=== PATIENT | male | born 1995 | race African-American/Black ===

== ENCOUNTER 2019-02-08 07:35 | Emergency (ER) | payer OTHER, SELFPAY ==
[2019-02-08 07:48] VITALS: BP 127/68; PULSE 67; RESP 16; TEMP 36.8; O2SAT 98; BMI 31.1
--- NOTE | 2019-02-08 07:55 | DI.RAD.S_ITS ---
PROCEDURE: XR MANDIBLE MIN 4V INDICATIONS: Right mandible pain right ramus after injury TECHNIQUE: 4 views of the mandible were acquired. COMPARISON: None. FINDINGS: Bones: No fractures or dislocations. No suspicious bony lesions. Soft tissues: Visualized sinuses appear clear. No suspicious soft tissue densities. IMPRESSION: No acute fracture. No osseous lesion. If symptoms and/or clinical suspicion for pathology persist, further assessment with repeat, or advanced imaging (e.g., CT, MRI, or bone scan) may be helpful for further assessment. Dictated by: Billie Stubbs M.D. on 02/08/2019 at 8:32 Approved by: Billie Stubbs M.D. on 02/08/2019 at 8:32
--- NOTE | 2019-02-08 09:29 | DI.CT.S_ITS ---
PROCEDURE: CT FACIAL BONES WO CON INDICATIONS: Right side jaw pain after basketball injury TECHNIQUE: Noncontrast 2.5 mm thick axial images acquired from the mandible through the frontal sinuses, with coronal and sagittal reformatting. For radiation dose reduction, the following was used: automated exposure control, adjustment of mA and/or kV according to patient size. COMPARISON: None. FINDINGS: Image quality: Excellent. Bones and teeth: Orbital mason are intact. Sinus mason show no fracture or deformity. Nasal bones and septum are intact. Visualized portions of the mandible demonstrate no fractures or subluxation. Zygomatic arches are intact. Pterygoid plates are intact. Visualized portions of the skull base and auditory canals are intact. Vertically impacted right upper and lower third molars and left upper third molar noted. Sinuses: History attention cysts noted in the left frontal sinus and the left maxillary sinus. Mastoid air cells are aerated. Soft tissues: No edema, masses, or fluid collections. No enlarged lymph nodes. No soft tissue lacerations or debris. Vascular: Visualized vascular structures appear normal in the absence of contrast. Bony vascular foramina and canals are intact. IMPRESSION: No fracture. Dictated by: Elidia Mary MD, PhD on 02/08/2019 at 8:56 Approved by: Elidia Mary MD, PhD on 02/08/2019 at 8:59
[2019-02-08 09:58] VITALS: BP 117/72; PULSE 63; RESP 16; O2SAT 100
--- NOTE | 2019-02-08 09:58 | PC.NURSE ---
Patient alert and oriented x4. To radiology. Awaiting CT results.
--- NOTE | 2019-02-08 09:58 | ED.HEATRA ---
HPI - Head Injury General Chief complaint: Head Injury Stated complaint: right jaw injury x1 day Time Seen by Provider: 02/08/19 07:37 Mode of arrival: Ambulatory Limitations: no limitations History of Present Illness HPI Narrative: 23-year-old male nonsmoker, otherwise healthy presents to the emergency department with a chief complaint of right-sided jaw pain since last night. He was playing basketball when another player air accidentally rammed his shoulder into his jaw. He now has pain in the right side of his drop just anterior to the ear. It is worse with motion and chewing and improves with rest. He denies any popping or clicking. He denies any numbness, tingling or weakness. MD Complaint: head injury Onset (ago): hour(s) Mechanism of Injury: unsure Place: outdoors Loss of Consciousness: no Location of injury: mandible Radiation: none Other Injuries: none Related Data Previous Rx's Medication Instructions Recorded ketorolac 10 mg PO TID 5 Days #15 tab 02/08/19 Review of Systems Constitutional Constitutional: Denies chills, Denies fatigue, Denies fever(s), Denies frequent falls, Denies lethargy and Denies weakness Eyes Eyes: Denies change in vision, Denies eye discharge, Denies irritation and Denies loss of vision ENT Ears, Nose, Mouth, and Throat: Denies change in voice, Denies dizziness, Denies neck pain, Denies sore throat and Denies throat swelling Cardiovascular Cardiovascular: Denies chest pain, Denies irregular heart rhythm, Denies lightheadedness, Denies palpitations, Denies dyspnea, Denies dyspnea on exertion and Denies orthopnea Respiratory Respiratory: Denies cough, Denies dyspnea, Denies dyspnea on exertion and Denies wheezing Gastrointestinal Gastrointestinal: Denies abdominal pain, Denies change in bowel habits, Denies diarrhea, Denies nausea and Denies vomiting Genitourinary Genitourinary: Denies hematuria, Denies flank pain, Denies urinary incontinence and Denies urinary urgency Musculoskeletal Musculoskeletal: Denies back pain, Denies muscle weakness, Denies neck pain, Denies numbness and Denies tingling Integumentary/Breasts Skin/Breast: Denies pruritus, Denies erythema, Denies rash and Denies wounds Neurologic Neurologic: Denies behavioral changes, Denies confusion, Denies dizziness, Denies frequent falls, Denies loss of vision, Denies numbness, Denies tingling and Denies weakness Psychiatric Psychiatric: Denies anxiety, Denies behavioral changes, Denies confusion, Denies depression, Denies homicidal ideation and Denies suicidal ideation Endocrine Endocrine: Denies fatigue, Denies flushing and Denies palpitations Hematologic/Lymphatic Hematologic/Lymphatic: Denies easy bruising Allergic/Immunologic Allergic/Immunologic: Denies urticaria, Denies throat swelling and Denies wheezing PFSH Social History Smoking Status: Never smoker Social History Smoking Status: Never smoker Exam Narrative Exam Narrative: GEN: AOx3 and in mild distress EYES: Pupils are equal, round, and reactive to light and accommodation. Extraoccular muscles are intact bilaterally. There is no subconjunctival hemorrhage or exudate. ENT: pain to palpate TMJ on Right. No numbness. NO dental injury. CHEST: Lungs are clear to auscultation bilaterally and free of wheezes, rales, or rhonchi. Heart rate is regular rhythm, there are no murmurs, clicks, rubs, or gallops. There is no chest wall tenderness. ABD: Abdomen is soft and nontender. There is no guarding or rebound. Bowel sounds are normal in all 4 quadrants. There is no mass or organomegaly. EXT: Full painless ROM of all extremities with no loss of sensation or strength. SKIN: Warm, pink, and dry. No erythema or rash Initial Vital Signs Initial Vital Signs: Vital Signs Temperature 98.3 F 02/08/19 07:48 Pulse Rate 67 02/08/19 07:48 Respiratory Rate 16 02/08/19 07:48 Blood Pressure 127/68 02/08/19 07:48 Pulse Oximetry 98 02/08/19 07:48 Course Orders Ordered: ED Orders 02/08/19 09:29 CT facial bones wo con Stat Vital Signs Vital signs: Vital Signs - 8 hr 02/08/19 09:58 Pulse Rate 63 Respiratory Rate 16 Blood Pressure [Left Arm] 117/72 Pulse Oximetry 100 MDM - Head Injury Imaging Data Mandible Xray: Radiologist's impression: [address] [address] XRay Report Signed Patient: Garrick Chaudhary [facility]#: [id number] : 1995Acct:[id number] Age/Sex: 23 / MDate of Service: 02/08/19 Loc: ED Accession Number: [id number] Procedure: XR mandible min 4V Ordering Provider: David Talamantes D.O. PROCEDURE: XR MANDIBLE MIN 4V INDICATIONS: Right mandible pain right ramus after injury TECHNIQUE: 4 views of the mandible were acquired. COMPARISON: None. FINDINGS: Bones: No fractures or dislocations. No suspicious bony lesions. Soft tissues: Visualized sinuses appear clear. No suspicious soft tissue densities. IMPRESSION: No acute fracture. No osseous lesion. If symptoms and/or clinical suspicion for pathology persist, further assessment with repeat, or advanced imaging (e.g., CT, MRI, or bone scan) may be helpful for further assessment. Dictated by: Billie Stubbs M.D. on 02/08/2019 at 8:32 Approved by: Billie Stubbs M.D. on 02/08/2019 at 8:32 [place] [address] CT Scan Report Signed Patient: Grarick Chaudhary [facility]#: [id number] : 1995Acct:[id number] Age/Sex: 23 / MDate of Service: 02/08/19 Loc: ED Accession Number: [id number] Procedure: CT facial bones wo con Ordering Provider: David Talamantes D.O. PROCEDURE: CT FACIAL BONES WO CON INDICATIONS: Right side jaw pain after basketball injury TECHNIQUE: Noncontrast 2.5 mm thick axial images acquired from the mandible through the frontal sinuses, with coronal and sagittal reformatting. For radiation dose reduction, the following was used: automated exposure control, adjustment of mA and/or kV according to patient size. COMPARISON: None. FINDINGS: Image quality: Excellent. Bones and teeth: Orbital mason are intact. Sinus mason show no fracture or deformity. Nasal bones and septum are intact. Visualized portions of the mandible demonstrate no fractures or subluxation. Zygomatic arches are intact. Pterygoid plates are intact. Visualized portions of the skull base and auditory canals are intact. Vertically impacted right upper and lower third molars and left upper third molar noted. Sinuses: History attention cysts noted in the left frontal sinus and the left maxillary sinus. Mastoid air cells are aerated. Soft tissues: No edema, masses, or fluid collections. No enlarged lymph nodes. No soft tissue lacerations or debris. Vascular: Visualized vascular structures appear normal in the absence of contrast. Bony vascular foramina and canals are intact. IMPRESSION: No fracture. Dictated by: Elidia Mary MD, PhD on 02/08/2019 at 8:56 Approved by: Elidia Mary MD, PhD on 02/08/2019 at 8:59 Discharge Plan Departure Patient Disposition: Home Clinical Impression: Temporomandibular joint arthralgia Qualifiers: Laterality: right Qualified Code(s): M26.621 - Arthralgia of right temporomandibular joint Discharge Date/Time: 02/08/19 10:50 Instructions: DI for Temporomandibular Disorder Activity Restrictions/Additional Instructions: *You have been diagnosed with [temporomandibular joint injury] *What to do: *Take medications as directed: tylenol / motrin *Follow up with your primary care provider in 2-3 days, call for an appointment. Let them know you were seen in the Emergency Department and that we ask that you be seen in follow up *Return to ER if you should have any new, worsening or concerning symptoms Prescriptions: New ketorolac 10 mg tablet 10 mg PO TID 5 Days Qty: 15 RF: 0
== END 2019-02-08 10:50 | disposition home or self-care (01) ==
PROVIDERS: Emergency Provider Emergency Medicine
DX: M26.621 Arthralgia of right temporomandibular joint (principal); Y93.67 Activity, basketball
CPT/HCPCS: 70110; 70486; 99282; 99284

== ENCOUNTER 2019-03-23 18:14 | Emergency (ER) | payer OTHER, SELFPAY ==
[2019-03-23 18:34] VITALS: BP 135/67; PULSE 77; RESP 18; TEMP 36.8; O2SAT 100; BMI 32.5
--- NOTE | 2019-03-23 18:36 | ED.UPPEXIN ---
HPI - Extremity Injury (Upper) <Nancy Maldonado PA-C - Last Filed: 03/23/19 20:45> General Chief Complaint: Extremity Injury, Upper Stated Complaint: RT HAND INJURY Time Seen by Provider: 03/23/19 18:23 Source: patient Mode of arrival: Ambulatory Limitations: no limitations History of Present Illness HPI narrative: This 23-year-old male comes to ED secondary to right hand pain, states his PCP advised he would need to come here. He states that 10 days ago he was playing basketball and thinks he hit another player on the palmar surface of his hand. Some pain at the time but continued to play. He states he has not noted any swelling, has not taken any medications except for a little ibuprofen today. 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 He denies any other injury or pain elsewhere. He is right-handed. He denies any weakness or paresthesia Related Data Previous Rx's Medication Instructions Recorded ibuprofen 800 mg PO Q8H PRN #30 tab 03/23/19 Allergies Allergy/AdvReac Type Severity Reaction Status Date / Time No Known Drug Allergies Allergy Verified 03/23/19 18:33 Review of Systems <Nancy Maldonado PA-C - Last Filed: 03/23/19 20:45> Review of Systems ROS Unobtainable: All systems reviewed & are unremarkable except as noted in HPI and below Patient History <Nancy Maldonado PA-C - Last Filed: 03/23/19 20:45> Medical History (Updated 03/23/19 @ 19:50 by Nancy Maldonado PA-C) No chronic problems (Chronic) Surgical History (Updated 03/23/19 @ 18:56 by Nancy Maldonado PA-C) No history of previous surgery (Chronic) Social History Smoking Status: Never smoker alcohol intake frequency: 0-2 drinks per day Substance Use Type: does not use Exam <Nancy Maldonado PA-C - Last Filed: 03/23/19 20:45> Narrative Exam Narrative: GENERAL APPEARANCE: Patient sitting comfortably, in no distress. LUNGS: Clear to auscultation bilaterally. HEART: Rate and rhythm regular without murmur, normal S1 and S2, no S3 or S4. MUSCULOSKELETAL: Right hand and wrist no effusion, no point tenderness over the wrist, hand or fingers aside from at the for MCP joint and proximal metacarpal. Full a ROM of all fingers, strength is intact in all [place] against resistance NEUROVASCULAR: Right hand fingers are warm and pink with brisk cap refill, sensation grossly intact Initial Vital Signs Initial Vital Signs: Vital Signs Temperature 98.3 F 03/23/19 18:34 Pulse Rate 77 03/23/19 18:34 Respiratory Rate 18 03/23/19 18:34 Blood Pressure 135/67 03/23/19 18:34 Pulse Oximetry 100 03/23/19 18:34 <DO Isra Fierro Last Filed: 03/23/19 21:01> Initial Vital Signs Initial Vital Signs: Vital Signs Temperature 98.3 F 03/23/19 18:34 Pulse Rate 77 03/23/19 18:34 Respiratory Rate 18 03/23/19 18:34 Blood Pressure 135/67 03/23/19 18:34 Pulse Oximetry 100 03/23/19 18:34 Course <Nancy Maldonado PA-C - Last Filed: 03/23/19 20:45> Orders Ordered: ED Orders 03/23/19 18:51 XR hand RT min 3V Stat Vital Signs Vital signs: Vital Signs - 8 hr 03/23/19 18:34 03/23/19 19:55 Temperature 98.3 F Pulse Rate 77 66 Respiratory Rate 18 17 Blood Pressure 135/67 Blood Pressure [Left Arm] 131/65 Pulse Oximetry 100 100 <DO Isra Fierro Last Filed: 03/23/19 21:01> Orders Ordered: ED Orders 03/23/19 18:51 XR hand RT min 3V Stat Vital Signs Vital signs: Vital Signs - 8 hr 03/23/19 18:34 03/23/19 19:55 Temperature 98.3 F Pulse Rate 77 66 Respiratory Rate 18 17 Blood Pressure 135/67 Blood Pressure [Left Arm] 131/65 Pulse Oximetry 100 100 Discharge Plan Departure Patient Disposition: Home Clinical Impression: Sprain and strain of hand Contusion of hand Qualifiers: Encounter type: initial encounter Laterality: right Qualified Code(s): S60.221A - Contusion of right hand, initial encounter Discharge Date/Time: 03/23/19 19:50 Instructions: DI for Hand Injury Activity Restrictions/Additional Instructions: There was no broken bone visible on your x-ray, however I think in addition to hitting and bruising the bone, you also strained the hand. This area needs rest to heal, so we have given you a splint to help with that. Please wear it 23/11. I have sent a prescription strength ibuprofen to [facility] for you to take. Please schedule a follow-up with your primary care provider in about a week to assess your progress and see whether further treatment may be needed. Prescriptions: New ibuprofen 800 mg tablet 800 mg PO Q8H PRN (Reason: hand pain) Qty: 30 RF: 0 Referrals: [facility] [Provider Group] <Papi Steen, DO - Last Filed: 03/23/19 21:01> Sign Out Provider Sign Out Attestation: Dr Steen Co-Sign Statement: I was available for consultation during this patient's emergency department visit. This chart is signed by myself for administrative purposes only. I did not have direct contact with this patient during this visit. They were seen independently by the APC.
--- NOTE | 2019-03-23 18:43 | PC.NURSE ---
reports, right hand dominant, hurts when he is spreading his fingers and flexion, playing basketball 10 days ago. denies other injuries.
--- NOTE | 2019-03-23 18:51 | DI.RAD.S_ITS ---
PROCEDURE: XR HAND RT MIN 3V INDICATIONS: 4th MC/MCP pain (injury 10 days ago) TECHNIQUE: 3 views of the hand(s) acquired. COMPARISON: None. FINDINGS: Bones: No fractures or dislocations. Carpal bones are normally aligned. No suspicious bony lesions. Soft tissues: No suspicious soft tissue calcifications. IMPRESSION: No acute osseous abnormality. Dictated by: Manolo Ashton M.D. on 03/23/2019 at 19:23 Approved by: Manolo Ashton M.D. on 03/23/2019 at 19:24
[2019-03-23 19:55] VITALS: BP 131/65; PULSE 66; RESP 17; O2SAT 100
== END 2019-03-23 19:50 | disposition home or self-care (01) ==
PROVIDERS: Emergency Provider Internal Medicine
DX: S63.8X1A Sprain of other part of right wrist and hand, initial encounter (principal); S66.811A Strain of other specified muscles, fascia and tendons at wrist and hand level, right hand, initial encounter; S60.221A Contusion of right hand, initial encounter; Y93.67 Activity, basketball
CPT/HCPCS: 73130; 99282; 99283

== ENCOUNTER 2019-05-19 11:44 | Emergency (ER) | payer OTHER, SELFPAY ==
[2019-05-19 11:52] VITALS: BP 106/63; PULSE 60; RESP 14; TEMP 36.9; O2SAT 98
--- NOTE | 2019-05-19 11:54 | DI.RAD.S_ITS ---
PROCEDURE: XR KNEE LT 3V INDICATIONS: slipped w/ hyper extension now pain TECHNIQUE: 3 views of the knee were acquired. COMPARISON: [facility], CR, XR KNEE 3 VIEWS LEFT, 05/09/2019, 13:42. FINDINGS: Bones: No fractures or dislocations. No suspicious bony lesions. Soft tissues: No joint effusion. No suspicious soft tissue calcifications. IMPRESSION: No acute osseous abnormality of the left knee. Dictated by: Ravinder Max M.D. on 05/19/2019 at 11:34 Approved by: Ravinder Max M.D. on 05/19/2019 at 11:35
[2019-05-19] MEDS: IBUPROFEN 400 MG TABLET 800 MG PO (11:58)
--- NOTE | 2019-05-19 12:49 | ED.LOWEXIN ---
HPI - Extremity Injury (Lower) General Chief Complaint: Extremity Injury, Lower Stated Complaint: left knee from fall this morning Time Seen by Provider: 05/19/19 12:12 Source: patient Mode of arrival: Ambulatory Limitations: no limitations History of Present Illness HPI Narrative: Patient is a 24-year-old male who presents with left knee pain. He says he twisted and fell on the ice today. He is able to walk he denies numbness or tingling. He has no other injuries no hip or ankle pain. MD complaint: knee injury Related Data Previous Rx's Medication Instructions Recorded ibuprofen 800 mg PO Q8H PRN #30 tab 03/23/19 Allergies Allergy/AdvReac Type Severity Reaction Status Date / Time No Known Drug Allergies Allergy Verified 03/23/19 18:33 Review of Systems Review of Systems Narrative: GENERAL: Denies chills,fever HEENT: Denies throat pain RESPIRATORY: Denies dyspnea, cough, wheezing CARDIOVASCULAR: Denies chest pain, palpitations GASTROINTESTINAL: Denies nausea, vomiting MUSCULOSKELETAL: See HPI SKIN: No rash, no laceration, no pruritus NEUROLOGIC: Denies weakness, dizziness, headache, numbness 8 point review of systems is negative except for those stated above and HPI Patient History Medical History No chronic problems (Chronic) Surgical History No history of previous surgery (Chronic) Social History Smoking Status: Never smoker Smoking Status: Never smoker alcohol intake frequency: 0-2 drinks per day Substance Use Type: does not use Exam Initial Vital Signs Initial Vital Signs: Vital Signs Temperature 98.4 F 05/19/19 11:52 Pulse Rate 60 05/19/19 11:52 Respiratory Rate 14 05/19/19 11:52 Blood Pressure 106/63 05/19/19 11:52 Pulse Oximetry 98 05/19/19 11:52 GENERAL: Well-appearing, well-nourished and in no acute distress. CARDIOVASCULAR: peripheral pulses in tact, cap refill <2 sec RESPIRATORY: No respiratory distress, speaks in full sentences without difficulty EXTREMITIES: Normal range of motion, no clubbing or edema. Neurovascularly intact Left lower extremity knee is stable he is able flex and extend minimal swelling NEUROLOGICAL: Cranial nerves II through XII grossly intact. Normal gait and speech. SKIN: Warm, dry, no petechiae, no rashes or lesions. Procedures Orthopedic Splinting/Casting Injury #1: Side: left Lower Extremity Injury Location: knee Lower Extremity Immobilizer: Leno wrap Post splinting neuro exam: intact Post splinting vascular exam: intact Placed by: Nursing Course Orders Ordered: ED Orders 05/19/19 11:54 XR knee LT 3V Stat Discontinued Medications Ibuprofen (Advil) 800 mg PO NOW ONE Stop: 05/19/19 11:55 Last Admin: 05/19/19 11:58 Dose: 800 mg Documented by: LELAND Vital Signs Vital signs: Vital Signs - 8 hr 05/19/19 11:52 Temperature 98.4 F Pulse Rate 60 Respiratory Rate 14 Blood Pressure 106/63 Pulse Oximetry 98 MDM - Extremity Injury (Lower) Imaging Data Extremity x-ray #1: Radiologist's Impression: PROCEDURE: XR KNEE LT 3V INDICATIONS: slipped w/ hyper extension now pain TECHNIQUE: 3 views of the knee were acquired. COMPARISON: [facility], , XR KNEE 3 VIEWS LEFT, 05/09/2019, 13:42. FINDINGS: Bones: No fractures or dislocations. No suspicious bony lesions. Soft tissues: No joint effusion. No suspicious soft tissue calcifications. IMPRESSION: No acute osseous abnormality of the left knee. Dictated by: Ravinder Max M.D. on 05/19/2019 at 11:34 Discharge Plan Departure Patient Disposition: Home Clinical Impression: Left knee sprain Qualifiers: Encounter type: initial encounter Involved ligament of knee: other ligament Qualified Code(s): S83.8X2A - Sprain of other specified parts of left knee, initial encounter Clinical Impression: (Ruled Out): No history of previous surgery Discharge Date/Time: 05/19/19 13:05 Instructions: DI for Knee Sprain Activity Restrictions/Additional Instructions: *You have been diagnosed with left knee sprain *What to do: Wear knee brace all while active as needed for the next few days. He may require repeat x-ray or possibly MRI in the future if not healing. Elevate and ice *Continue to take medications as directed Ibuprofen 800 mg every 8 hours if needed for [id number] *Follow up with your primary care provider in 2-3 days *Return to ER if you should have increasing pain numbness tingling or any new, worsening or concerning symptoms Prescriptions: No Action ibuprofen 800 mg tablet 800 mg PO Q8H PRN (Reason: hand pain) Qty: 30 RF: 0 Referrals: [facility] [Provider Group]
[2019-05-19 13:03] VITALS: PULSE 62; RESP 18; O2SAT 100
== END 2019-05-19 13:05 | disposition home or self-care (01) ==
PROVIDERS: Emergency Provider Emergency Medicine
DX: S83.8X2A Sprain of other specified parts of left knee, initial encounter (principal); W00.0XXA Fall on same level due to ice and snow, initial encounter
CPT/HCPCS: 73562; 99283; 99284

== ENCOUNTER 2021-02-13 09:36 | Emergency (ER) | payer OTHER, SELFPAY ==
[2021-02-13 09:48] VITALS: BP 146/88; PULSE 81; RESP 14; TEMP 36.7; O2SAT 99; BMI 35.2
--- NOTE | 2021-02-13 10:43 | PC.NURSE ---
Bleeding controlled since arrival with nasal clamp
[2021-02-13 11:59] VITALS: BP 144/73; PULSE 74; RESP 18; O2SAT 99
[2021-02-13] MEDS: OXYMETAZOLINE NASAL SPRAY 15 ML 2 SPRAYS NASAL (12:10)
--- NOTE | 2021-02-13 12:10 | ED_ITS ---
HPI - Epistaxis <KEON Randle - Last Filed: 02/13/21 20:22> General Chief complaint: Nasal Problem Stated complaint: Nose bleed for 2.5 hours Time Seen by Provider: 02/13/21 11:34 Source: patient Mode of arrival: Ambulatory Limitations: no limitations History of Present Illness HPI Narrative: Patient is a 25-year-old male with no known medical history who presents to the emergency department today for epistaxis of his right nare 2 hours prior to arrival. He states that he is not on any blood thinners, does not have high blood pressure, this has happened to him as a child but not in adult, he denies picking his nose. He reports that it took about an hour and a half for the bleeding to stop with pressure. He has been wearing a nasal clamp since he arrived to the emergency department with no further bleeding. He denies any pain, he reports that he is otherwise healthy without any medical problems. Related Data Previous Rx's Medication Instructions Recorded ibuprofen 800 mg tablet 800 mg PO Q8H PRN #30 tab 03/23/19 Allergies Allergy/AdvReac Type Severity Reaction Status Date / Time No Known Drug Allergies Allergy Verified 02/13/21 09:53 Review of Systems <KEON Randle - Last Filed: 02/13/21 20:22> Review of Systems Narrative: General: denies fever, chills Head/Neck: denies headache, neck pain Eyes: denies visual changes, eye pain Cardio: denies chest pain, palpitations Respiratory: denies shortness of breath, cough GI: denies abdominal pain, nausea, vomiting, or diarrhea : denies dysuria, hematuria MSK: denies joint pain, muscle weakness Skin: denies rash, itching Neuro: denies numbness, tingling Patient History <KEON Randle - Last Filed: 02/13/21 20:22> Medical History No chronic problems Surgical History No history of previous surgery Social History Smoking Status: Never smoker Smoking Status: Never smoker alcohol intake frequency: holidays/special occasions only Substance Use Type: does not use Exam <KEON Randle - Last Filed: 02/13/21 20:22> Narrative Exam Narrative: Independently reviewed vitals signs and nursing notes. General: Awake, alert, nontoxic, no cardiorespiratory distress Head/Neck: Atraumatic, neck full range of motion Eyes: EOMI, conjunctiva normal Nose: nares patent, no rhinorrhea, clamp removed without bleeding for 30 minutes. Right nare examined, no clots, small area of erythematous mucous wear bleeding likely occurred from is very anterior, it is no longer bleeding. No interventions required. Mouth/Throat: moist mucus membranes, posterior pharynx normal, no oral lesions Cardio: Regular rate and rhythm, no peripheral edema Respiratory: respirations unlabored without wheezing, stridor, or rales. No retractions. GI: Abdomen soft, nontender MSK: Moves all extremities, neurovascularly intact Skin: Normal capillary refill, no rash Neuro: Normal speech and cognition, normal gait Initial Vital Signs Initial Vital Signs: Vital Signs Temperature 98.1 F 02/13/21 09:48 Pulse Rate 81 02/13/21 09:48 Respiratory Rate 14 02/13/21 09:48 Blood Pressure 146/88 H 02/13/21 09:48 Pulse Oximetry 99 02/13/21 09:48 <Lida Ryan MD - Last Filed: 02/14/21 07:38> Initial Vital Signs Initial Vital Signs: Vital Signs Temperature 98.1 F 02/13/21 09:48 Pulse Rate 81 02/13/21 09:48 Respiratory Rate 14 02/13/21 09:48 Blood Pressure 146/88 H 02/13/21 09:48 Pulse Oximetry 99 02/13/21 09:48 Course <KEON Randle - Last Filed: 02/13/21 20:22> Orders Ordered: Discontinued Medications Oxymetazoline HCl (Oxymetazoline Nasal Twilight 15 Ml) 2 sprays NASAL NOW ONE Stop: 02/13/21 12:06 Last Admin: 02/13/21 12:10 Dose: 2 sprays Documented by: ERNAYLOR Vital Signs Vital signs: Vital Signs - 8 hr 02/13/21 09:48 02/13/21 11:59 Temperature 98.1 F Pulse Rate 81 74 Respiratory Rate 14 18 Blood Pressure 146/88 H 144/73 H Pulse Oximetry 99 99 <Lida Ryan MD - Last Filed: 02/14/21 07:38> Orders Ordered: Discontinued Medications Oxymetazoline HCl (Oxymetazoline Nasal Twilight 15 Ml) 2 sprays NASAL NOW ONE Stop: 02/13/21 12:06 Last Admin: 02/13/21 12:10 Dose: 2 sprays Documented by: EDEN Vital Signs Vital signs: Vital Signs - 8 hr 02/13/21 09:48 02/13/21 11:59 Temperature 98.1 F Pulse Rate 81 74 Respiratory Rate 14 18 Blood Pressure 146/88 H 144/73 H Pulse Oximetry 99 99 MDM - Epistaxis <KEON Randle - Last Filed: 02/13/21 20:22> MDM Narrative Medical decision making narrative: Garrick is a 25-year-old male who presented to the ED for epistaxis of his right ear. It has resolved with pressure for 2 hours, after blowing his nose he did not have any further bleeding, he was given Afrin and a nasal clamp in case it starts again. He does not have any risk factors including anticoagulants, high blood pressure, history of the same for this to happen again, I have a low suspicion that he will return with epistaxis. Patient is appropriate and amenable to discharge home. Vital signs are stable on repeat examination is unremarkable. Patient has been informed of results. Patient has been given strict return to ER precautions for any new or worsening symptoms. Patient understands to follow up closely with outpatient providers as instructed. Patient understands plan and agrees to discharge home. All questions and concerns answered at this time. Discharge Plan Departure Patient Disposition: Home Clinical Impression: Epistaxis Instructions: DI for Nosebleed Activity Restrictions/Additional Instructions: *You have been diagnosed with epistaxis that has resolved. It was nice to meet you today Garrick, and glad that your nose bleeds resolved without any major intervention. Take-home Afrin to use next time they can be helpful to put it on a cotton ball up this side of the nose is bleeding and put a clamp on it. Otherwise try to keep your nose moisturized with a humidifier, saline spray, or an emollient of your choice. *What to do: *Please continue to take your regular medications as directed. [ ] New medication prescriptions sent to your pharmacy: [ ] [ ] New medication written as a paper prescription [x ] No new medications given *Please follow up with your primary care provider in 2-3 days, call for an appointment. Let them know you were seen in the Emergency Department and that we ask that you be seen in follow up. We will electronically transmit a record of today's note if your PCP is in our system *If you do not have a primary care provider please contact the [facility] Resource line at [phone]. They will ask some questions about your medical history and help get you set up with a doctor in the community. *Return to Emergency Department if you should have any new, worsening or concerning symptoms, such as [fever greater than 101F, chills, worsening pain, persistent vomiting or other bothersome symptoms] Prescriptions: No Action ibuprofen 800 mg tablet 800 mg PO Q8H PRN (Reason: hand pain) Qty: 30 RF: 0 <Lida Ryan MD - Last Filed: 02/14/21 07:38> [facility] Attestation: I was immediately available in the department for consultation throughout this patient's visit. I agree with documentation as above. Lida Ryan MD
== END 2021-02-13 12:17 | disposition home or self-care (01) ==
PROVIDERS: Emergency Provider Nurse Practitioner Critical Care Medicine
DX: R04.0 Epistaxis (principal)
CPT/HCPCS: 99282; A9270